=== PATIENT | female | born 1985 | race Caucasian/White ===

== ENCOUNTER 2019-06-20 05:19 | Emergency (ER) | payer MEDICAID ==
[~2019-06-20] VITALS: Ht 170.2 cm; Wt 53.0 kg
[2019-06-20 05:32] VITALS: BP 109/67
== END 2019-06-20 09:19 | disposition left against medical advice (07) ==
LOC: ER 06:29
DX: Z53.21 Procedure and treatment not carried out due to patient leaving prior to being seen by health care provider (principal)

== ENCOUNTER 2019-10-16 14:43 | Emergency (ER) | payer MEDICAID ==
[~2019-10-16] VITALS: Ht 162.6 cm; Wt 48.0 kg
[2019-10-16 16:14] VITALS: BP 110/70
== END 2019-10-16 16:17 | disposition home or self-care (01) ==
LOC: ER 14:43
DX: B34.9 Viral infection, unspecified (principal); R07.89 Other chest pain; R50.9 Fever, unspecified; R06.02 Shortness of breath; Z88.0 Allergy status to penicillin
CPT/HCPCS: 71045; 81025; 93005; 99283

== ENCOUNTER 2025-05-31 10:02 | Emergency (ER) | payer OTHER, MEDICAID ==
[~2025-05-31] VITALS: Ht 157.5 cm; Wt 60.0 kg
[2025-05-31 10:16] VITALS: O2SAT 100
[2025-05-31 11:40] LABS: BASOPHILS % 0.7 % (0.0-2.0); EOSINOPHILS % 0.7 % (0.0-5.0); HEMATOCRIT. 37.3 % (36.0-48.0); HEMOGLOBIN. 12.6 g/dL (12.0-16.0); LYMPHOCYTES % 29.3 % (20.0-50.0); MEAN PLATELET VOLUME 12.7 fl (7.4-10.4); MONOCYTES % 8.6 % (2.0-8.0); NEUTROPHILS % 60.7 % (40.0-76.0); PLATELET 99 x1000/uL (130-400); RED BLOOD CELL COUNT 3.97 mill/uL (4.2-5.4); RED CELL DISTRIBUTION WIDTH 13.1 % (11.6-14.6)
[2025-05-31 11:48] LABS: CLARITY URINE CLOUDY (CLEAR); COLOR URINE YELLOW (YELLOW); GLUCOSE URINE NEGATIVE (NEGATIVE); KETONES URINE NEGATIVE (NEGATIVE); LEUKOCYTE ESTERASE URINE 2+ (NEGATIVE); NITRITE URINE NEGATIVE (NEGATIVE); OCCULT BLOOD URINE NEGATIVE (NEGATIVE); PH URINE 6.0 (4.5-8.0); PROTEIN URINE NEGATIVE (NEGATIVE); SPECIFIC GRAVITY URINE 1.021 (1.005-1.030); UROBILINOGEN URINE 0.2 E.U./dL (0.2-1.0)
[2025-05-31 11:49] LABS: CREATININE 0.6 mg/dL (0.6-1.0); UREA NITROGEN BLOOD 9 mg/dL (9-23)
[2025-05-31 12:00] LABS: SQUAMOUS EPITHELIAL CELL URINE 2+ /lpf (RARE/1+)
[2025-05-31 12:01] LABS: BACTERIA URINE 1+; RBC URINE 0-2 /hpf (0-2); WBC URINE 15-25 /hpf (0-2)
[2025-05-31] MEDS ORDERED: CEFP200T14 MT (12:10)
[2025-05-31] MEDS ORDERED: PYR200 MT (12:11)
[2025-05-31 12:37] VITALS: BP 118/50; PULSE 58; RESP 18; TEMP 37; O2SAT 100
[2025-05-31 12:37] LABS: HCG SCREEN NEGATIVE
== END 2025-05-31 12:45 | disposition home or self-care (01) ==
LOC: ER 10:02
DX: N39.0 Urinary tract infection, site not specified (principal); Z88.0 Allergy status to penicillin
CPT/HCPCS: 36415; 80048; 81003; 81025; 84703; 85025; 87077; 87186; 99283

== ENCOUNTER 2025-07-04 16:48 | Emergency (ER) | payer MEDICAID, OTHER ==
[~2025-07-04] VITALS: Ht 157.5 cm; Wt 54.5 kg
[~2025-07-04 16:48] MED LIST: CEFP200T14 MT; PYR200 MT
[2025-07-04 17:22] VITALS: BP 106/56; TEMP 36.9; O2SAT 100
[2025-07-04 17:23] VITALS: PULSE 88; RESP 18; O2SAT 99
[2025-07-04] MEDS: TETANUS, DIPHTHERIA, PERTUSSIS VAC/PF 0.5ML (>10YR OLD) IM ONE (18:02)
== END 2025-07-04 18:08 | disposition home or self-care (01) ==
LOC: ER 16:48
DX: Z23 Encounter for immunization (principal); Z88.0 Allergy status to penicillin
CPT/HCPCS: 90471; 90715; 99283